=== PATIENT | female | born 1985 | race Caucasian/White ===

== ENCOUNTER 2023-10-13 14:57 | Outpatient (CLI) | payer OTHER ==
--- NOTE | 2023-10-13 21:31 | Ultrasound Report ---
PROCEDURE: Pelvic w/Transvaginal INDICATIONS: LEIOMYOMA OF UTERUS TECHNIQUE: Real-time scanning was performed of the pelvic organs, with image documentation. Additional endovagi nal scanning was necessary due to incomplete visualization of the adnexal and endometrial structures by transabdominal scanning. COMPARISON: None. FINDINGS: Uterus: Uterus is anteverted and normal in size at 8.4 x 3.5 x 4 cm. The myometrium is heterogeneou s. The endometrium measures 4 mm in combined thickness. IUD appears appropriately positioned. Ovaries: The right ovary measures 1.8 x 1 x 0.9 cm, with a calculated ovarian volume of 0.8 cc. The left ovary measures 2.2 x 1.8 x 2.3 cm, with a calculated ovarian volume of 4.7 cc. The ovaries hav e a normal sonographic appearance. Less than 12 follicles can be seen in each ovary. No adnexal mas ses are seen. No cystic lesions measuring greater than 3 cm. Other: No pathologic free abdominal or pelvic fluid. IMPRESSION: 1.IUD is appropriately positioned. 2.Normal sonographic evidence of a uterine fibroid. 3.Bilateral ovaries are unremarkable. Reviewed by: Minnie Mahmood MD on 10/13/2023 9:29 PM PDT Approved by: Minnie Mahmood MD on 10/13/2023 9:29 PM PDT Station ID: [id number]
== END 2023-10-13 14:58 | disposition home or self-care (01) ==
LOC: DI 14:57
PROVIDERS: ATTEND Nurse Practitioner Family
DX: D25.9 Leiomyoma of uterus, unspecified (principal); Z97.5 Presence of (intrauterine) contraceptive device

== ENCOUNTER 2024-04-19 15:48 | Emergency (ER) | payer OTHER ==
[2024-04-19 16:33] VITALS: BP 120/73; O2SAT 100
--- NOTE | 2024-04-19 16:59 | ED Physician Documentation ---
History of Present Illness - Stated complaint Stated Complaint: RT THUMB LAC - Chief complaint Chief Complaint: Laceration - History obtained from History obtained from: Patient - Additonal information Additional information: 39-year-old female presents with right thumb laceration after cutting it on a knife while doing dishes. She states she cleaned it thoroughly at home and bleeding controlled prior to arrival. She is unsure of last tetanus but does not believe it has been in the last 10 years. Patient initially presented with L&I paperwork however she states she does not plan to fill that out. PD PAST MEDICAL HISTORY - Past Medical History Past Medical History: No - Past Surgical History Past Surgical History: No - Allergies Allergies/Adverse Reactions: Allergies Allergy/AdvReac Type Severity Reaction Status Date / Time No Known Drug Allergies Allergy Verified 04/19/24 16:16 - Social History Does the pt smoke?: No Smoking Status: Never smoker Does the pt drink ETOH?: Yes ETOH Use: Wine, Beer Does the pt have substance abuse?: No - Immunizations Immunizations are current?: Yes - POLST Patient has POLST: No PD ED PE NORMAL - Vitals Vital signs reviewed: Yes - General General: Alert and oriented X 3, No acute distress, Well developed/nourished - Derm Derm: Normal color, Warm and dry, Other (4 mm laceration lateral aspect of the right thumb no nail involvement) - Extremities Extremities: No deformity, Normal ROM s pain Results - Vitals Vitals: Vital Signs - 24 hr 04/19/24 16:10 Temperature 36.5 C Heart Rate 85 Respiratory 18 Rate Blood Pressure 120/73 O2 Saturation 100 Oxygen O2 Source Room air PD Medical Decision Making - ED course Complexity details: d/w patient ED course: 39-year-old female presented with right thumb laceration as determined HPI. Bleeding controlled prior to arrival. On exam, she has a shallow approximately 4 mm laceration of the right thumb not including the nail. Wound was cleaned thoroughly and Dermabond applied, sutures were not indicated. She was given updated tetanus and discussed home wound care instructions as well as return precautions if any signs of infection. Patient states that she does not need to fill out L&I paperwork For this injury. Departure - Departure Disposition: 01 Home, Self Care Clinical Impression: Laceration of thumb Qualifiers: Encounter type: initial encounter Damage to nail status: without damage Foreign body presence: without foreign body Laterality: right Qualified Code(s): S61.011A - Laceration without foreign body of right thumb without damage to nail, initial encounter Condition: Good Instructions: ED Laceration Hand, ED Laceration Ext Skin Glue Comments: You received an updated tetanus vaccine today. Keep wound dry, return if any signs of infection. Forms: PCP List
[2024-04-19] MEDS: TETANUS/DIPHTHERIA/PERTUSSIS 0.5 ML SYRINGE IM ONE (17:01)
== END 2024-04-19 17:04 | disposition home or self-care (01) ==
LOC: ED 15:48
DX: S61.011A Laceration without foreign body of right thumb without damage to nail, initial encounter (principal); W26.0XXA Contact with knife, initial encounter; Y93.G1 Activity, food preparation and clean up; Y92.511 Restaurant or cafe as the place of occurrence of the external cause; Y99.0 Civilian activity done for income or pay
CPT/HCPCS: 12001; 90471; 99283